=== PATIENT | male | born 1950 | race Caucasian/White ===

== ENCOUNTER 2017-04-06 10:21 | Observation (INO) | payer MEDICARE ==
[2017-03-31 13:50] VITALS: BMI 24.6
[2017-04-06] MEDS ORDERED: Levofloxacin 500 mg/D5W 100 ml Premix Bag ONE (10:51)
[2017-04-06] MEDS ORDERED: Fentanyl 100 MCG/2 ML VIAL ONE (13:35)
[2017-04-06] MEDS ORDERED: Midazolam HCl 2 mg/2 ml Vial ONE (13:35)
[2017-04-06] MEDS ORDERED: Propofol 200 MG/20 ML VIAL ONE (13:43)
[2017-04-06] MEDS ORDERED: ePHEDrine/0.9% NaCl/PF SYRINGE 50 mg/10 ml ONE (13:43)
[2017-04-06] MEDS ORDERED: Lidocaine 1% PF 5 ML VIAL ONE (13:43)
[2017-04-06] MEDS ORDERED: Ondansetron HCl/PF 4 MG/2 ML Vial ONE (13:43)
[2017-04-06] MEDS ORDERED: Ketorolac Tromethamine 30 MG/ML VIAL ONE (13:43)
[2017-04-06] MEDS ORDERED: Dexamethasone 20 MG/5 ML VIAL ONE (13:43)
[2017-04-06] MEDS ORDERED: B & O ONE (14:25)
[2017-04-06] MEDS ORDERED: Mag-Al 1200 mg/1200 mg/30 ML UDCUP PO PRN (15:01)
[2017-04-06] MEDS ORDERED: diphenhydrAMINE HCl 25 MG CAP PO PRN (15:01)
[2017-04-06] MEDS ORDERED: HYDROcodone/Acetaminophen 5/325 mg Tablet PO PRN ×2 (15:01)
[2017-04-06] MEDS ORDERED: Oxybutynin Chloride 5 MG TAB PO PRN (15:01)
[2017-04-06] MEDS ORDERED: Acetaminophen 500 MG TAB PO PRN (15:01)
[2017-04-06] MEDS ORDERED: Ondansetron HCl/PF 4 MG/2 ML Vial IVP PRN (15:01)
[2017-04-06] MEDS ORDERED: Morphine Sulfate 2 MG/ML SYRINGE IVP PRN (15:01)
[2017-04-06 15:55] LABS: Anion Gap 14 mmol/L (10-20); BUN (Urea Nitrogen) 16 mg/dL (8.4-25.7); Calc. Creatinine Clearance 85 mL/min (70-130); Calcium 8.7 mg/dL (7.8-10.44); Carbon Dioxide 21 mmol/L (23-31); Chloride 111 mmol/L (98-107); Estimated GFR-MDRD 88
--- NOTE | 2017-04-06 20:02 | OP ---
DATE OF PROCEDURE: 04/06/2017 SERVICE: Urology. SURGEON: Tyree Alexander M.D. PREOPERATIVE DIAGNOSIS: Benign prostatic hypertrophy with urinary retention. POSTOPERATIVE DIAGNOSIS: Benign prostatic hypertrophy with urinary retention. PROCEDURE PERFORMED: Transurethral resection of the prostate. INDICATIONS FOR PROCEDURE: Mr. Posadas is a 66-year-old white male with a history of BPH with incomp lete emptying. He is able to urinate, but cannot empty his bladder and has had previous retention b efore. He is currently doing CIC 1-2 times a day to help empty his bladder. Cystoscopy had demonst rated ball valve type prostate and I had recommended TURP for treatment. Risks and benefits of the surgery were discussed and he has agreed to proceed forward. DESCRIPTION OF PROCEDURE: After identification of his armband and verification of consent, the hitesh ent was brought back to the operating room where he underwent general anesthesia with LMA. He was t hen placed in dorsal lithotomy position and prepped and draped in usual sterile fashion. After appr opriate timeout, a visual obturator, 24 Thai resectoscope sheath was placed per urethra into the b ladder. The bladder demonstrated a heavy trabeculation with ureters in the orthotopic location cons istent with a prior cystoscopy, prostate was severely obstructed with a ball-valving median lobe. T he visual obturator was switched out for the bipolar resectoscope using the coag current both ureter s were marked medial and distal to the ureteral orifice for later identification. Resection was sta rted out the median lobe and resecting down the median lobe to the level of the bladder, taking care not to undermine the trigone or the bladder urothelium, relaxing incisions were made at 5 and 7 o'c lock on the bladder neck to achieve a wider bladder neck. The prostate was then resected down on th e lateral lobes and median lobe to the capsules laterally and to perform an even urinary shelf on e posterior aspect. The anterior was resected somewhat gently. Resection was carried all the way u p to the verumontanum. Upon final completion, the prostate was wide open with hemostasis performed with meticulous coag function within the prostatic fossa. The prostate chips were then evacuated wi th the [employer] evacuator and some of the remaining chips are evacuated manually using the resectoscope . Final hemostasis was performed with a coag function and there was absolutely no bleeding at the e nd of the case. All chips had been removed. Both ureters were identified in orthotopic location un harmed, they did not appear to be any additional chips and the prostate was wide open. Therefore, t he resectoscope was removed. No prostate chips were found within the urethra on the way out. A 22- Thai three-way Garcia catheter was then placed per urethra back into the bladder and CBI initiated. A 30 mL of sterile water were instilled in the balloon and the catheter secured to the patient's l eg with a StatLock. A 16-A B\T\O suppository was placed in the patient's rectum. The patient was t hen taken out of lithotomy, awakened and taken to PACU for recovery in stable condition. COMPLICATIONS: None. ESTIMATED BLOOD LOSS: Minimal. RETAINED TUBES AND DRAINS: A 22-Thai with three-way Garcia catheter on CBI. SPECIMENS: Prostate chips. DISPOSITION: The patient will go to PACU and subsequently be placed in observation in the hospital. He will remain as an outpatient and probably have a voiding trial and discharge tomorrow.
[2017-04-06] MEDS: Docusate 100 MG CAP PO SCH (20:25)
[2017-04-07 05:15] LABS: #Lymphocytes 0.6 thou/uL (1.20-3.40); #Monocytes 0.5 thou/uL (0.11-0.59); #Neutrophils 6.9 thou/uL (1.40-6.50); %Basophils 0.4 % (0.0-1.0); %Eosinophils 0.3 % (0.0-10.0); %Lymphocytes 7.9 % (21.0-51.0); %Monocytes 6.5 % (0.0-10.0); Mean Platelet Volume 7.1 fL (7.4-10.4); Red Blood Cell (RBC) Count 3.97 mill/uL (4.70-6.10); White Blood Cell (WBC) Count 8.1 thou/uL (4.8-10.8)
[2017-04-07 05:18] LABS: Anion Gap 14 mmol/L (10-20); BUN (Urea Nitrogen) 10 mg/dL (8.4-25.7); Calc. Creatinine Clearance 94 mL/min (70-130); Carbon Dioxide 23 mmol/L (23-31); Chloride 105 mmol/L (98-107); Estimated GFR-MDRD Greater than 90
--- NOTE | 2017-04-07 08:56 | PRG ---
DATE OF SERVICE: 04/07/2017 SERVICE: Urology. SUBJECTIVE: The patient states he is doing fine, has no complaints today. He stated that his urine got quite red when the bladder irrigation was stopped early this morning. As a result, the patient had to have his bladder irrigation restarted, which caused immediate clearing of his urine. He is not having any bladder spasms. He denies any fevers or chills, chest pain or shortness of breath. OBJECTIVE: VITAL SIGNS: Temperature 98.2, pulse 84, respirations 14, blood pressure 157/93, saturations 96% on room air. GENERAL: No apparent distress, communicative, and alert. ABDOMEN: Soft, nontender, nondistended, positive bowel sounds. GENITOURINARY: A Garcia catheter in place with continuous bladder irrigation running at a slow drip with completely clear urine. StatLock affixed. Some mild bleeding around the catheter. EXTREMITIES: No clubbing, cyanosis or edema. LABORATORY DATA: On laboratory evaluation, a full set of labs in the [facility] system, which I have reviewed. Of note, the patient's white count is 8.1 with hemoglobin of 13.3. Creatinine is 0.78. Electrolytes are normal. ASSESSMENT AND PLAN: A 66-year-old white male with benign prostatic hypertrophy and urinary retenti on, status post transurethral resection of the prostate postoperative day #1 with intermittent hemat uria. I have stopped continuous bladder irrigation again today and I will reevaluate within about 3 0 minutes to see how bloody his urine looks. If his urine is relatively clear or mildly bloody, I t hink he would be fine to have the catheter removed. Otherwise, if it becomes very bloody, I will pr obably just restart the continuous bladder irrigation and potentially consider watching him an addit ional 24 hours for persistent bleeding. PLAN: 1. Hold CBI. 2. Reevaluate and based on hematuria, decide on whether he can have a voiding trial or whether he w ill need to remain in the hospital for continuous bladder irrigation.
[2017-04-07] MEDS: Docusate 100 MG CAP PO SCH (09:32)
[2017-04-07 12:41] VITALS: BP 170/99; TEMP 97.9
[2017-04-07] MEDS ORDERED: Konsyl 12 gm Packet PO SCH (21:00)
--- NOTE | 2017-04-09 11:27 | DIS ---
DATE OF ADMISSION: 04/06/2017 DATE OF DISCHARGE: 04/07/2017 ADMITTING DIAGNOSIS: Benign prostatic hypertrophy. DISCHARGE DIAGNOSES: Benign prostatic hypertrophy and urinary retention. ADMITTING PHYSICIAN: Tyree Alexander M.D. DISCHARGING PHYSICIAN: Tyree Alexander M.D. PROCEDURES PERFORMED WHILE INPATIENT: Transurethral resection of the prostate. BRIEF HISTORY: Mr. Posadas is a 66-year-old white male with history of BPH with urinary retention. After workup, he elected to have a TURP to allow him to urinate better. Risks and benefits of the s urgery were discussed and he is now coming into the hospital for this procedure. HOSPITAL COURSE: After surgery (please see operative note for details) patient was kept in the hosp ital in observation for continuous bladder irrigation. His urine remained relatively clear overnigh t and CBI was stopped in the morning. The patient had his catheter removed, but unfortunately could not void after approximately 5-6 hours. A bladder scan demonstrated that he had approximately 500 mL of urine in his bladder. As such, I recommended that we replace his Garcia catheter, which was do ne. I opted for the patient to either stay in the hospital or he could be discharged home, he state d he would rather go home, so he was discharged with his Garcia catheter in place. DISCHARGE CONDITION: Good. DISPOSITION: Discharge to home with Garcia catheter. Followup will be in approximately 1 week for a voiding trial. DISCHARGE INSTRUCTIONS: Include no heavy lifting, no strenuous activities, keeping catheter bag to gravity drainage at all times. Notify me for any problems with his catheter, chest pain, shortness of breath, fevers or any other concerning signs or symptoms. MEDICATIONS ON DISCHARGE: 1. Colace 100 mg p.o. b.i.d. 2. Highland 5/325 mg 1-2 tabs p.o. q.4 hours p.r.n. pain. 3. Pyridium 100 mg p.o. t.i.d. p.r.n. dysuria. 4. Oxybutynin 5 mg p.o. t.i.d. p.r.n., urgency.
== END 2017-04-07 18:31 | disposition home or self-care (01) ==
LOC: SDC 10:21 → SURG A 15:01
PROVIDERS: ADMIT Urology; ATTEND Urology
PROC: 0VT08ZZ Resection of Prostate, Via Natural or Artificial Opening Endoscopic (ICD-10-PCS; principal; 2017-04-06)
DX: N40.1 Benign prostatic hyperplasia with lower urinary tract symptoms (principal); R33.8 Other retention of urine; K21.9 Gastro-esophageal reflux disease without esophagitis; Z87.440 Personal history of urinary (tract) infections; Z98.890 Other specified postprocedural states; Z90.49 Acquired absence of other specified parts of digestive tract; Z90.89 Acquired absence of other organs; Z88.5 Allergy status to narcotic agent; Z88.2 Allergy status to sulfonamides; Z79.899 Other long term (current) drug therapy
CPT/HCPCS: 51702; 52601; 80048 ×2; 85025; 86850; 86900; 86901; 88305; 96374; 96375; 96376; G0378; 36415; J0360; J1100; J1885; J1956; J2001; J2250; J2405; J2704; J3010